=== PATIENT | female | born 1975 | race Two or more races ===

== ENCOUNTER 2018-06-29 12:09 | Emergency (ER) | payer OTHER ==
[~2018-06-29] VITALS: Ht 162.6 cm; Wt 122.6 kg
[2018-06-29 13:57] LABS: BASOPHILS # (AUTO) 0.15 x10^3/uL (0-0.1); BASOPHILS % (AUTO) 1 % (0-1); EOSINOPHILS # (AUTO) 0.09 x10^3/uL (0-0.4); EOSINOPHILS % (AUTO) 1 % (1-7); LYMPHOCYTES # (AUTO) 1.77 x10^3/uL (1-3.4); LYMPHOCYTES % (AUTO) 14 % (22-44); MD NO; MEAN CORPUSCULAR HEMOGLOBIN 29.3 pg (27.0-34.8); MEAN CORPUSCULAR HGB CONC 33.1 g/dL (32.4-35.8); MEAN CORPUSCULAR VOLUME 88.4 fL (80-100); MEAN PLATELET VOLUME 9.1 fL (7.4-10.4); MONOCYTES # (AUTO) 0.56 x10^3/uL (0.2-0.8); MONOCYTES % (AUTO) 5 % (2-9); NEUTROPHILS # (AUTO) 10.02 x10^3/uL (1.8-6.8); NEUTROPHILS % (AUTO) 80 % (42-75); PLATELET COUNT 276 x10^3/uL (130-400); RED CELL DISTRIBUTION WIDTH 13.3 % (9.6-15.2)
[2018-06-29 14:07] LABS: ALBUMIN 3.3 g/dL (3.4-5.0); ANION GAP 6 mmol/L (5-15); CALCIUM 8.3 mg/dL (8.5-10.1); CHLORIDE 109 mmol/L (98-107)
--- NOTE | 2018-06-29 14:18 | NUR ---
ASSUMED CARE OF PT AT THIS TIME FROM [facility]. AMBULATORY WITH STEADY GAIT. PT REPORTS "SHARP PAINS IN ABDOMEN (POINTS TO LEFT LOWER QUADRANT) THAT STARTED THIS MORNING AND CONCERNED ME, DEALING WITH PAIN IN BACK THAT COMES AROUND TO FRONT FOR A COUPLE MONTHS, LIKE DULL PAIN, LIKE CONTRACTIONS/LABOR PAIN, I'VE HAD UTI BEFORE IN PAST SO I DID TAKE OVER THE COUNTER URINARY PAIN RELIEF MEDICINE, SO MY URINE IS ORANGE NOW." CONT PULSE OX, BP MONITORS APPLIED. VSS. RATES PAIN "10/10 IN ABD WITH MOVEMENT, STANDING STILL IT IS TOLERABLE." CALL LIGHT IN REACH. FALL PRECAUTIONS IN PLACE. SIDE RAILS UPX2. AWAITING EVAL BY ERP.
--- NOTE | 2018-06-29 14:20 | NUR ---
PT DENIES URGE TO PROVIDE UA SAMPLE AT THIS TIME, STATES "I GAVE IT THE THE TRIAGE NURSE AND DOCTOR, THEY TOOK IT FROM ME WHILE I WAITING IN THE LOBBY." TO VERIFY WITH LAB AND LINEN SUPERVISOR.
--- NOTE | 2018-06-29 14:34 | NUR ---
CALLED LAB, SPOKE WITH CONNIE AND VERIFIED LAB RECEIVED UA SAMPLE FROM FANCY NEEDLEWORKER ANGUS German AND JAYA LOU. LAB VERIFIED, UA SENT AT 1320 06/29/18 COLLECTED BY CARMINE AND ANGUS. AWAITING UA RESULTS.
--- NOTE | 2018-06-29 14:48 | NUR ---
AT BEDSIDE FOR EVALUATION, AWAITING ADDITIONAL ORDERS.
[2018-06-29 14:53] LABS: MICROSCOPIC AUTO
[2018-06-29 14:58] LABS: CULTURE INDICATED? YES
--- NOTE | 2018-06-29 15:09 | NUR ---
PT STANDING IN POSITION OF COMFORT. GAIT STEADY. DECLINES OFFER TO SIT/REST ON DR. KARAN HERNANDEZ AWARE. PT REFUSES NEED FOR PAIN MEDICATION, "IT'S DULL JUST STANDING HERE, FEELS TOLERABLE, PLUS I DON'T LIKE TO TAKE PILLS." PT UP FOR RECHECK. VSS. FALL PRECAUTIONS IN PLACE.
--- NOTE | 2018-06-29 15:15 | NUR ---
PT REQUESTING TO SPEAK WITH ERP PRIOR TO DISCHARGE. AWAITING CHART AND DISCHARGE PAPERS FROM ERP.
[2018-06-29 16:06] VITALS: BP 142/83
== END 2018-06-29 16:08 | disposition home or self-care (01) ==
LOC: ED 16:05
DX: N30.00 Acute cystitis without hematuria (principal); M25.552 Pain in left hip
CPT/HCPCS: 36415; 80048; 81001; 82040; 84703; 85025; 87086; 99283